=== PATIENT | male | born 1965 | race Caucasian/White ===

== ENCOUNTER 2017-05-25 15:39 | Emergency (ER) | payer OTHER ==
[2017-05-25] MEDS ORDERED: KETOROLAC TROMETHAMINE 60 MG/2 ML VIAL IM ONE (15:54)
[2017-05-25 15:56] VITALS: BP 136/87; PULSE 100; TEMP 98.3; BMI 22.7
[2017-05-25] MEDS ORDERED: KETOROLAC TROMETHAMINE 60 MG/2 ML VIAL ONE (15:56)
--- NOTE | 2017-05-25 16:01 | PDOC ---
History of Present Illness - History of Present Illness Initial Comments: 05/25/17 16:02 The patient is a 51 year old male, with no significant past medical history, who presents to the emergency department with pain radiating from the right side of his neck down his right upper extremity for 2 days. The patient reports experiencing this pain many years ago. He reports he was working on a ceiling a couple of days ago with his head looking upwards for long periods of time and noticed a progressive increase in pain since. He states that his pain is exacerbated with palpation and with forward elevation of his right upper extremity. He denies numbness or tingling in the upper extremities. He reports taking a flexeril 4 hours ago, as well as, Aleve without alleviation of his pain. He denies any other symptoms at this time. He denies chest pain, shortness of breath, headache and dizziness. He denies fever, chills, nausea, vomit, diarrhea and constipation. He denies dysuria, frequency, urgency and hematuria. Allergies: NKDA <Ирина Liu - Last Filed: 05/25/17 16:02> - History of Present Illness Initial Comments: 05/25/17 18:36 The: Exam reveals well-developed well-nourished male in no acute distress cooperative Afebrile vital signs stable There is no point tenderness or deformity of the cervical spine. Range of motion is good but there is moderate stiffness with rotation flexion and extension. Neurological reveals the patient complains of mild tingling in the thumb and radial aspect of the forearm, but there is no demonstrable sensory or motor deficit on examination. Pulses are full. Strength is full and symmetric. The patient has full range of motion of the shoulder and arm without restriction Impression is cervical strain with radiculopathy, the result of working overhead yesterday with his neck in a hyperextended position. This has happened to him before. Cervical collar and sling were applied. The patient was more comfortable. Toradol helped to relieve the pain. He was continued obtain it on anti-inflammatories and muscle relaxants and instructed to follow-up with Dr. stewart , floor care specialist, in approximately 1 week or return to the ER if his symptoms worsened. He was in no significant pain or other distress and fully ambulatory upon discharge to follow-up as directed <Conrad Norman - Last Filed: 05/25/17 18:39> - General Chief Complaint: Pain Stated Complaint: RT NECK ARM PAIN Time Seen by Provider: 05/25/17 15:47 Past History <Ирина Liu - Last Filed: 05/25/17 16:02> <Conrad Norman - Last Filed: 05/25/17 18:39> - Past Medical History Allergies/Adverse Reactions: Allergies Allergy/AdvReac Type Severity Reaction Status Date / Time No Known Allergies Allergy Verified 05/25/17 15:40 Home Medications: Ambulatory Orders Cyclobenzaprine HCl [Flexeril 10 mg] 10 mg PO TID #15 tablet 05/25/17 Ketorolac Tromethamine [Toradol] 10 mg PO Q6H #20 tablet 05/25/17 Review of Systems - Review of Systems Able to Perform ROS?: Yes Comments:: 05/25/17 16:03 CONSTITUTIONAL: Absent: fever, chills, diaphoresis, generalized weakness, malaise, loss of appetite HEENT: Absent: rhinorrhea, nasal congestion, throat pain, throat swelling, difficulty swallowing, mouth swelling, ear pain, eye pain, visual Changes CARDIOVASCULAR: Absent: chest pain, syncope, palpitations, irregular heart rate, lightheadedness , peripheral edema RESPIRATORY: Absent: cough, shortness of breath, dyspnea with exertion, orthopnea, wheezing, stridor, hemoptysis GASTROINTESTINAL: Absent: abdominal pain, abdominal distension, nausea, vomiting, diarrhea, constipation, melena, hematochezia GENITOURINARY: Absent: dysuria, frequency, urgency, hesitancy, hematuria, flank pain, genital pain MUSCULOSKELETAL: (+) right neck pain radiating down right upper extremity. Absent: arthralgia, joint swelling SKIN: Absent: rash, itching, pallor HEMATOLOGIC/IMMUNOLOGIC: Absent: easy bleeding, easy bruising, lymphadenopathy, frequent infections ENDOCRINE: Absent: unexplained weight gain, unexplained weight loss, heat intolerance, cold intolerance NEUROLOGIC: Absent: headache, focal weakness or paresthesia, dizziness, unsteady gait, seizure, mental status changes, bladder or bowel incontinence PSYCHIATRIC: Absent: anxiety, depression, suicidal or homicidal ideation, hallucinations <Ирина Liu - Last Filed: 05/25/17 16:02> *Physical Exam - Vital Signs Last Vital Signs Temp Pulse Resp BP Pulse Ox 98.3 F 100 H 20 136/87 98 05/25/17 15:39 05/25/17 15:39 05/25/17 15:39 05/25/17 15:39 05/25/17 15:39 - Physical Exam Comments: 05/25/17 16:03 GENERAL: Well developed, well nourished. Awake and alert. No acute distress. HEENT: Normocephalic, atraumatic. PERRLA, EOMI. No conjunctival pallor. Sclera are non- icteric. Moist mucous membranes. Oropharynx is clear. NECK: Supple. Full ROM. No JVD. Carotid pulses 2+ and symmetric, without bruits. No thyromegaly. No lymphadenopathy. CARDIOVASCULAR: Regular rate and rhythm. No murmurs, rubs, or gallops. Distal pulses are 2+ and symmetric. PULMONARY: No evidence of respiratory distress. Lungs clear to auscultation bilaterally. No wheezing, rales or rhonchi. ABDOMINAL: Soft. Non-tender. Non-distended. No rebound or guarding. No organomegaly. Normoactive bowel sounds. MUSCULOSKELETAL Normal range of motion at all joints. No bony deformities or tenderness. No CVA tenderness. EXTREMITIES: No cyanosis. No clubbing. No edema. No calf tenderness. SKIN: Warm and dry. Normal capillary refill. No rashes. No jaundice. NEUROLOGICAL: Alert, awake, appropriate. Cranial nerves 2-12 intact. No motor deficits in the upper extremities and lower extremities. Normoreflexic in the upper and lower extremities. Normal speech. Gait is normal without ataxia. PSYCHIATRIC: Cooperative. Good eye contact. Appropriate mood and affect. <Ирина Liu - Last Filed: 05/25/17 16:02> ED Treatment Course - Medications Given in the ED: ED Medications Discontinued Medications Generic Name Dose Route Start Last Admin Trade Name Freq PRN Reason Stop Dose Admin Ketorolac Tromethamine 60 mg 05/25/17 15:54 05/25/17 16:00 Toradol Injection - IM 05/25/17 15:55 60 mg ONCE ONE Administration <Ирина Liu - Last Filed: 05/25/17 16:02> Medical Decision Making - Medical Decision Making 05/25/17 17:41 X-ray of the cervical spine shows straightening but no sign of fracture or dislocation Soft cervical collar and sling were applied. The patient was more comfortable and was discharged fully ambulatory, with significantly reduced pain, to follow up with floor care specialist. <Conrad Norman - Last Filed: 05/25/17 18:39> *DC/Admit/Observation/Transfer - Attestations Scribe Attestion: 05/25/17 16:03 Documentation prepared by Ирина Liu, acting as medical superintendent for Conrad Block MD <Ирина Liu - Last Filed: 05/25/17 16:02> - Discharge Dispostion Admit: No <Conrad Norman - Last Filed: 05/25/17 18:39> Diagnosis at time of Disposition: Cervical strain, acute Qualifiers: Encounter type: initial encounter Qualified Code(s): S16.1XXA - Strain of muscle, fascia and tendon at neck level, initial encounter - Discharge Dispostion Disposition: HOME Condition at time of disposition: Improved - Prescriptions Prescriptions: Cyclobenzaprine HCl [Flexeril 10 mg] 10 mg PO TID #15 tablet Ketorolac Tromethamine [Toradol] 10 mg PO Q6H #20 tablet - Referrals Referrals: Jun Stewart MD [Staff Physician] - 1 week - Patient Instructions Printed Discharge Instructions: DI for Cervical Muscle Strain - Post Discharge Activity Work/School Note: Back to Work
== END 2017-05-25 17:27 | disposition home or self-care (01) ==
LOC: FER 15:39
PROC: 3E0233Z Introduction of Anti-inflammatory into Muscle, Percutaneous Approach (ICD-10-PCS; principal; 2017-05-25)
DX: S16.1XXA Strain of muscle, fascia and tendon at neck level, initial encounter (principal); X58.XXXA Exposure to other specified factors, initial encounter; Y93.89 Activity, other specified; Y92.9 Unspecified place or not applicable
CPT/HCPCS: 72050-TC; 99282-25